=== PATIENT | female | born 1990 | race Caucasian/White ===

== ENCOUNTER 2016-09-16 12:58 | Emergency (ER) | payer SELFPAY ==
[~2016-09-16] VITALS: Ht 165.1 cm; Wt 68.0 kg
[2016-09-16 13:00] VITALS: BP 119/77
[2016-09-16] MEDS ORDERED: PENICILLIN G BENZATHINE 2.4 MMU/4 ML ML IM ONE ×2 (13:24→13:30)
== END 2016-09-16 13:38 | disposition home or self-care (01) ==
LOC: ER 13:00
DX: J02.0 Streptococcal pharyngitis (principal); H10.9 Unspecified conjunctivitis
CPT/HCPCS: 96372; 99283; A4606; J0558; Z7610